=== PATIENT | male | born 1950 ===

== ENCOUNTER 2021-04-14 12:00 | Outpatient (CLI) | payer MEDICARE | END 2021-04-14 23:59 | disposition home or self-care (01) | LOC: VAS 12:00 | PROVIDERS: ATTEND Internal Medicine | DX: I70.203 Unspecified atherosclerosis of native arteries of extremities, bilateral legs (principal); I74.8 Embolism and thrombosis of other arteries; I74.3 Embolism and thrombosis of arteries of the lower extremities | CPT/HCPCS: 93922; 93925 ==